=== PATIENT | male | born 1950 | race Caucasian/White ===

== ENCOUNTER → 2017-09-03 14:48 | Outpatient (CLI) | payer MEDICARE, SELFPAY ==
[2017-09-03 14:59] LABS: Basophils % 0.4 % (0.1-2.0); Eosinophils # 0.2 K/mm3 (0.0-0.4); Eosinophils % 2.3 % (0.1-12.0); Hematocrit 41.3 % (42.0-52.0); Hemoglobin 14.5 g/dL (14.1-18.0); Lymphocytes % 26.7 K/mm3 (10-50); Mean Corpuscular HGB Conc 35.2 g/dL (31.8-35.4); Mean Corpuscular Hemoglobin 31.4 pg (27.0-31.2); Mean Corpuscular Volume 89.1 fl (80-94); Mean Platelet Volume 7.6 fl (7.4-10.4); Monocytes # 0.5 K/mm3 (0.1-1.0); Monocytes % 6.5 % (1.7-9.3); Neutrophils # 4.7 K/mm3 (1.8-7.8); Platelet Count 212 K/mm3 (142-424); Red Blood Count 4.63 M/mm3 (4.60-6.20); Red Cell Distribution Width 13.2 % (11.5-17.5); White Blood Count 7.3 K/mm3 (4.8-10.8)
[2017-09-03 15:13] LABS: Anion Gap 11.9 mEq/L (5-15); Blood Urea Nitrogen 14 mg/dL (7-18); Carbon Dioxide 26 mmol/L (21.0-32.0); Chloride 106 mmol/L (98-107); Creatinine,Serum 1.03 mg/dL (0.70-1.30); Estimated Glomerular Filt Rate 72 ml/min (>60); GFR (African American) 87 ML/MIN (>60); Glucose 98 mg/dL (74-106); Potassium 3.9 mmoL/L (3.5-5.1); Sodium 140 mmol/L (136-145); Troponin I < 0.02 ng/ml (0.00-0.06)
== END ==
PROVIDERS: PCP Internal Medicine; Visit Provider Internal Medicine
DX: R55 Syncope and collapse (principal); I25.118 Atherosclerotic heart disease of native coronary artery with other forms of angina pectoris; I25.2 Old myocardial infarction; I10 Essential (primary) hypertension
CPT/HCPCS: 36415; 80048; 84484; 85025; 93005; 93225; 93226

== ENCOUNTER 2017-10-28 | Observation (INO) ==
[2017-10-28 00:19] LABS: Basophils % 0.5 % (0.1-2.0); Eosinophils # 0.2 K/mm3 (0.0-0.4); Eosinophils % 2.5 % (0.1-12.0); Hematocrit 41.3 % (42.0-52.0); Hemoglobin 14.2 g/dL (14.1-18.0); Lymphocytes # 1.7 K/mm3 (0.7-4.5); Mean Corpuscular HGB Conc 34.4 g/dL (31.8-35.4); Mean Corpuscular Hemoglobin 31.5 pg (27.0-31.2); Mean Corpuscular Volume 91.5 fl (80-94); Mean Platelet Volume 7.4 fl (7.4-10.4); Monocytes # 0.4 K/mm3 (0.1-1.0); Monocytes % 5.1 % (1.7-9.3); Neutrophils # 5.2 K/mm3 (1.8-7.8); Neutrophils % 69.9 % (37.0-80.0); Platelet Count 220 K/mm3 (142-424); Red Blood Count 4.51 M/mm3 (4.60-6.20); Red Cell Distribution Width 13.4 % (11.5-17.5); White Blood Count 7.5 K/mm3 (4.8-10.8)
[2017-10-28 00:45] LABS: Alanine Aminotransferase 28 U/L (12-78); Albumin Level 3.8 gm/dL (3.4-5.0); Albumin/Globulin Ratio 1.1 (1.1-1.8); Alkaline Phosphatase 59 U/L (46-116); Anion Gap 12.8 mEq/L (5-15); Aspartate Amino Transferase 17 U/L (15-37); Bilirubin,Total 0.3 mg/dL (0.2-1.0); Blood Urea Nitrogen 17 mg/dL (7-18); Carbon Dioxide 27 mmol/L (21.0-32.0); Chloride 107 mmol/L (98-107); Creatine Kinase 95 U/L (39-308); Globulin 3.4 gm/dl (1.3-3.2); Glucose 104 mg/dL (74-106); Potassium 3.8 mmoL/L (3.5-5.1); Sodium 143 mmol/L (136-145); Total Protein,Serum 7.2 gm/dL (6.4-8.2)
--- NOTE | 2017-10-28 00:54 | Emergency Department Note ---
ED Disposition Clinical Impression: Bradycardia Chest pain Qualifiers: Chest pain type: precordial pain Qualified Code(s): R07.2 - Precordial pain Disposition: Admitted as Observation Condition on Discharge: Good Referrals: Sergio La [Primary Care Provider] - - Critical Care Critical Care Time: No Attestation: On 10/28/17, the high probability of a clinically significant, sudden or life threatening deterioration of the following system(s) required my full and direct attention, intervention and personal management. The time I documented below is in addition to time spent performing reported procedures but includes the following listed in this critical care notation. Medical Decision Making - Medical Records Medical records reviewed: Yes: I reviewed the patient's medical records. - Slim Inquiry Pt receiving controlled substance: No Vital Signs: 10/28/17 00:00 10/28/17 00:27 Temperature 97.8 F Temperature Source Oral Pulse Rate [Left Radial] 53 L 48 L Respiratory Rate 28 H 20 Blood Pressure [Right Arm] 145/73 132/73 Blood Pressure Mean [Right Arm] 97 92 Blood Pressure Source [Right Arm] Automatic Cuff Automatic Cuff Blood Pressure Position [Right Arm] Sitting Sitting 02 Sat by Pulse Oximetry 93 L 97 Oxygen Delivery Method Room Air Nasal Cannula Oxygen Flow Rate (LPM) 1.5 - Lab Data Lab results reviewed: Yes: I reviewed the patient's lab results. Lab Results 10/28/17 00:10: WBC 7.5, RBC 4.51 L, Hgb 14.2, Hct 41.3 L, MCV 91.5, MCH 31.5 H , MCHC 34.4, RDW 13.4, Plt Count 220, MPV 7.4, Neut % (Auto) 69.9, Lymph % (Auto ) 22.0, [place] % (Auto) 5.1, Eos % (Auto) 2.5, Baso % (Auto) 0.5, Neut # (Auto) 5.2, Lymph # (Auto) 1.7, [place] # (Auto) 0.4, Eos # (Auto) 0.2, Baso # (Auto) 0.0 10/28/17 00:10: Sodium 143, Potassium 3.8, Chloride 107, Carbon Dioxide 27, Anion Gap 12.8, BUN 17, Creatinine 1.18, Estimated Creat Clear 70, Estimated GFR 62, Est GFR ( Amer) 75, Glucose 104, Calcium 9.0, Total Bilirubin 0.3 , AST 17, ALT 28, Alkaline Phosphatase 59, Total Creatine Kinase 95, CK-MB (CK-2 ) 1.1, CK-MB (CK-2) Rel Index 1.2, Troponin I < 0.02, Total Protein 7.2, Albumin 3.8, Globulin 3.4 H, Albumin/Globulin Ratio 1.1 Result diagrams: 10/28/17 00:10 10/28/17 00:10 Orders (Tests/Meds): ED MEDICATIONS Discontinued Medications Generic Name Dose Route Start Last Admin Trade Name Freq PRN Reason Stop Dose Admin Nitroglycerin 1 gm 10/28/17 00:22 10/28/17 00:24 Nitroglycerin 1 Inch Oint Udp TD 10/28/17 00:23 1 gm ONCE ONE Administration ORDERS Category Date Time Status Chest XR -- portable [XR chest portable] Stat Exams 10/28/17 00:02 Taken 12-lead EKG Request [ECG Request by /Edyta] Stat Y 10/28/17 00:02 Ordered - Radiology Data #1 Image(s): Chest Image Reviewed: Yes I reviewed the patient's radiology image Preliminary Findings: Normal/NAD - ECG Data Tracing #1 I reviewed this ECG and interpreted as documented below: Arrhythmias present: sinus tom Ischemic changes: non-specific ST-T wave changes - Physician Consults Physician Consulted: boris Reason -: Admission Chest Pain HPI - General Chief Complaint: Chest Pain Stated Complaint: chest pain Time Seen by Provider: 10/28/17 00:10 Mode of Arrival: Wheelchair Source of Information: Patient, Relative, Medical Record Limitations: No Limitations Description of Symptoms (Recalled from ER Triage Doc. by RN): Pt. reports he began having sharp central chest pain, nausea, and difficulty breating on and off since 7pm. He reports it got worse around 1045pm and he took four 81mg baby aspirin, and and three nitro tablets under his tongue 5 minutes apart. He states the medication did not relieve his pain. - History of Present Illness HPI narrative: sharp lt sided epigastric pain which started at 0700 - assoc with jake JULIAN complaint: chest pain indicative of cardiac Onset (ago): hour(s) Duration: constant Activity at onset: during rest Pain location: epigastric Severity: moderate Quality: sharp Pain radiation: back Relieving factors: nothing Risk Factors for CAD: Hypertension, Hypercholesterolemia, Family Hx of CAD Treatments prior to or on arrival for Cardiac Chest Pain: aspirin, nitroglycerin - GIANFRANCO Score Non-Stemi Age of patient: 65 yrs or more Number of risk factors for CAD: Presence of 3 or more Prior coronary artery stenosis(seen in coronary angiography): Less than 50% ST-Segment deviation on ECG (more than 1 min): Absent Prior aspirin intake: ASA intake in the last 7 days Severe anginal chest pain: No or one episode in last 24 hours Elevated cardiac markers(CK-MB or troponin): Absent Non-Stemi Risk Score: 3 - Related Data Home Medications Medication Instructions Recorded Confirmed Aspirin [Aspirin 81mg EC Tab] 81 mg PO DAILY 10/28/17 10/28/17 Clopidogrel Bisulfate [Plavix 75mg 75 mg PO DAILY 10/28/17 10/28/17 Tab] Levothyroxine Sodium [Synthroid 88 mcg PO DAILY 10/28/17 10/28/17 88mcg (0.088mg) tablet] Lisinopril [Lisinopril 10mg Tab] 10 mg PO DAILY 10/28/17 10/28/17 Losartan Potassium 100 mg PO DAILY 10/28/17 10/28/17 Metoprolol Tartrate [Lopressor 12.5 mg PO DAILY 10/28/17 10/28/17 25mg tablet] Nitroglycerin [Nitrostat 0.4mg SL 0.4 mg SL NEEDED PRN 10/28/17 10/28/17 Tablet] Pantoprazole Sodium [Pantoprazole 40 mg PO DAILY 10/28/17 10/28/17 20mg Tab] Rosuvastatin Calcium [Crestor] 20 mg PO DAILY 10/28/17 10/28/17 Allergies Allergy/AdvReac Type Severity Reaction Status Date / Time No Known Allergies Allergy Unknown Uncoded 06/24/17 15:01 [facility] History I have reviewed the patient's past medical history: Yes Medical History: Denies:: Diabetes Mellitus Type 1, Diabetes Mellitus Type 2 Laterality Cases: Right: Arthroscopy Shoulder - Social History Alcohol Intake: never - Psychiatric History Expresses thoughts of harming self/others: None Suicide Plan Description: No Plan ROS Obtained: Yes All systems reviewed & no additional complaints - Constitutional Constitutional: Denies fever(s) - Eyes Eyes: Denies change in vision - ENT Ears, Nose, Mouth, and Throat: Denies sore throat - Cardiovascular Cardiovascular: Reports chest pain at rest - Respiratory Respiratory: No chest congestion, No cough - Gastrointestinal Gastrointestingal: Denies: abdominal pain - Genitourinary Female Genitourinary: Denies hematuria - Musculoskeletal Musculoskeletal: Denies joint pain - Integumentary/Breasts Skin/Breast: Denies rash - Neurologic Neurologic: Denies seizure-like activity Physical Exam - General General appearance: in no apparent distress - Head Head exam: normocephalic - Eye Eye exam: Present: PERRL, EOMI - ENT ENT exam: Present: mucous membranes moist - Neck Neck exam: Present: trachea midline - Respiratory Respiratory exam: Present: normal lung sounds bilaterally, respiratory distress - Cardiovascular Cardiovascular exam: Present: bradycardia, systolic murmur - Abdominal Exam Abdominal exam: Present: soft - Extremities Exam Extremities exam: Absent: calf tenderness - Neurological Exam Neurological exam: Present: alert, oriented X3, CN II-XII intact - Psychiatric Psychiatric exam: Present: normal affect - Skin Skin exam: Absent: rash
[2017-10-28 07:25] LABS: Basophils % 0.3 % (0.1-2.0); Eosinophils # 0.1 K/mm3 (0.0-0.4); Eosinophils % 1.3 % (0.1-12.0); Hematocrit 37.2 % (42.0-52.0); Hemoglobin 12.9 g/dL (14.1-18.0); Lymphocytes # 1.7 K/mm3 (0.7-4.5); Lymphocytes % 19.9 K/mm3 (10-50); Mean Corpuscular HGB Conc 34.7 g/dL (31.8-35.4); Mean Corpuscular Hemoglobin 31.5 pg (27.0-31.2); Mean Corpuscular Volume 90.7 fl (80-94); Mean Platelet Volume 7.6 fl (7.4-10.4); Monocytes # 0.4 K/mm3 (0.1-1.0); Neutrophils # 6.2 K/mm3 (1.8-7.8); Neutrophils % 73.5 % (37.0-80.0); Platelet Count 188 K/mm3 (142-424); Red Cell Distribution Width 13.5 % (11.5-17.5); White Blood Count 8.5 K/mm3 (4.8-10.8)
[2017-10-28 07:31] LABS: Anion Gap 14.7 mEq/L (5-15); Potassium 3.7 mmoL/L (3.5-5.1)
--- NOTE | 2017-10-28 08:27 | Pharmacy Consult Notes ---
[facility] Pharmacy VTE Monitoring - Patient Demographics Admission date: 10/27/17 Report Date: 10/28/17 Time: 08:26 Allergies/Adverse Reactions: Patient Allergies No Known Allergies Allergy (Unknown, Uncoded 06/24/17 15:01) Height: 1.75 m Weight: 81.647 kg Patient Problems: Current Active Problems Chest pain (Acute) Bradycardia (Acute) - VTE Risk Labs: VTE Related Lab Results Hgb 12.9 g/dL (14.1-18.0) L 10/28/17 06:15 Hct 37.2 % (42.0-52.0) L 10/28/17 06:15 Plt Count 188 K/mm3 (142-424) 10/28/17 06:15 BUN 16 mg/dL (7-18) 10/28/17 06:15 Creatinine 0.90 mg/dL (0.70-1.30) D 10/28/17 06:15 Estimated Creat Clear 83 mL/min (0-300) 10/28/17 06:15 Was VTE Risk Assessment Performed: Yes VTE Score: 4 VTE Risk Level: Low Risk Clinical Trial Participant: No - Prophylaxis VTE Prophylaxis Ordered?: Yes Types of VTE Prophylaxis: TEDS Knee High
--- NOTE | 2017-10-28 09:36 | History & Physical Report ---
*Admission Date: 10/27/17 *Chief complaint: chest pain *History of present illness: 67 year old male with a history of CAD, HTN and hyperlipidemia presented to the ED for evaluation of chest pain. Patient reports he was sitting is his recliner last evening when he had acute onset of midsternal chest pain that radiated to his back. He took 2 NTG SL with no improvement of symptoms. Patient states the pain was similar to his angina in the past. Pain was relieved with Morphine administration on arrival to the ED. He is followed by Dr. Mckay with last coronary stent placed 3-4 years ago. In the ED, he was found to be bradycardiac. EKG was negative for acute pathology. He was admitted for observation and cardiology consultation. Today, patient reports one episode of chest pain through the night. Serial cardiac enzymes were normal. He was noted to be bradycardiac on telemetry with rates in 30-40's at times. Daughter reports cardiology has discussed PPM in the past. [facility] History I have reviewed the patient's past medical history: Yes Medical History: Reports:: Hypertension, Myocardial Infarction Denies:: Cancer, Diabetes Mellitus Type 1, Diabetes Mellitus Type 2, MRSA Laterality Cases: Right: Arthroscopy Shoulder Other Surgeries: Yes: Other (right rotator cuff) Amputation: No Fractures: No - *Social History Educational Level: Completed Grade School Alcohol Intake: never Occupational Status: employed, retired Housing: house Household Members: spouse - Psychiatric History Expresses thoughts of harming self/others: None Suicide Plan Description: No Plan *Family Hx:: Cancer, Coronary Artery Disease, Diabetes, Heart Attack, Hyperlipidemia, Hypertension, Stroke, Thyroid Disorder Review of Systems - Review of Systems Review of systems:: pertinent systems reviewed and negative unless documented below - *Cardiovascular Reports chest pain - *Neurologic Denies seizure-like activity Meds Home Medications Medication Instructions Recorded Confirmed Type Aspirin [Aspirin 81mg EC Tab] 81 mg PO DAILY 10/28/17 10/28/17 History Clopidogrel Bisulfate [Plavix 75mg 75 mg PO DAILY 10/28/17 10/28/17 History Tab] Levothyroxine Sodium [Synthroid 88 mcg PO DAILY 10/28/17 10/28/17 History 88mcg (0.088mg) tablet] Lisinopril [Lisinopril 10mg Tab] 10 mg PO DAILY 10/28/17 10/28/17 History Losartan Potassium 100 mg PO DAILY 10/28/17 10/28/17 History Metoprolol Tartrate [Lopressor 12.5 mg PO DAILY 10/28/17 10/28/17 History 25mg tablet] Nitroglycerin [Nitrostat 0.4mg SL 0.4 mg SL NEEDED PRN 10/28/17 10/28/17 History Tablet] Pantoprazole Sodium [Pantoprazole 40 mg PO DAILY 10/28/17 10/28/17 History 20mg Tab] Rosuvastatin Calcium [Crestor] 20 mg PO DAILY 10/28/17 10/28/17 History Allergies Allergy/AdvReac Type Severity Reaction Status Date / Time No Known Allergies Allergy Unknown Uncoded 06/24/17 15:01 Exam Vital signs and Labs for Last 24 Hours: Temp Pulse Resp BP Pulse Ox 98.1 F 54 L 18 122/69 95 10/28/17 07:22 10/28/17 07:22 10/28/17 07:22 10/28/17 07:22 10/28/17 07:22 Laboratory Results - last 24 hr 10/28/17 00:10: WBC 7.5, RBC 4.51 L, Hgb 14.2, Hct 41.3 L, MCV 91.5, MCH 31.5 H , MCHC 34.4, RDW 13.4, Plt Count 220, MPV 7.4, Neut % (Auto) 69.9, Lymph % (Auto ) 22.0, [place] % (Auto) 5.1, Eos % (Auto) 2.5, Baso % (Auto) 0.5, Neut # (Auto) 5.2, Lymph # (Auto) 1.7, [place] # (Auto) 0.4, Eos # (Auto) 0.2, Baso # (Auto) 0.0 10/28/17 00:10: Sodium 143, Potassium 3.8, Chloride 107, Carbon Dioxide 27, Anion Gap 12.8, BUN 17, Creatinine 1.18, Estimated Creat Clear 70, Estimated GFR 62, Est GFR ( Amer) 75, Glucose 104, Calcium 9.0, Total Bilirubin 0.3 , AST 17, ALT 28, Alkaline Phosphatase 59, Total Creatine Kinase 95, CK-MB (CK-2 ) 1.1, CK-MB (CK-2) Rel Index 1.2, Troponin I < 0.02, Total Protein 7.2, Albumin 3.8, Globulin 3.4 H, Albumin/Globulin Ratio 1.1 10/28/17 03:15: Troponin I < 0.02 10/28/17 06:15: WBC 8.5, RBC 4.10 L, Hgb 12.9 L, Hct 37.2 L, MCV 90.7, MCH 31.5 H, MCHC 34.7, RDW 13.5, Plt Count 188, MPV 7.6, Neut % (Auto) 73.5, Lymph % ( Auto) 19.9, [place] % (Auto) 5.0, Eos % (Auto) 1.3, Baso % (Auto) 0.3, Neut # (Auto ) 6.2, Lymph # (Auto) 1.7, [place] # (Auto) 0.4, Eos # (Auto) 0.1, Baso # (Auto) 0.0 10/28/17 06:15: Sodium 144, Potassium 3.7, Chloride 108 H, Carbon Dioxide 25, Anion Gap 14.7, BUN 16, Creatinine 0.90 D, Estimated Creat Clear 83, Estimated GFR 84, Est GFR ( Amer) 102 D, Glucose 99, Magnesium 1.7 10/28/17 06:15: Troponin I < 0.02 I & O for Last 24 hours: Intake & Output 10/25/17 10/26/17 10/27/17 10/28/17 11:59 11:59 11:59 11:59 Intake Total 592 / 592 Balance 592 / 592 Weight 180 lb Narrative: Alert and oriented x3. Rate and rhythm regular. Sinus bradycardia on bedside tele. No JVD. No carotid bruit. No cervical LAD. No LE edema. Pulses 2+ bilaterally. Lung sounds clear and equal. Abdomen soft and nontender. No neuro deficits. H&P: Result - Labs Labs: Short CBC 10/28/17 10/28/17 Range/Units 00:10 06:15 WBC 7.5 8.5 (4.8-10.8) K/mm3 Hgb 14.2 12.9 L (14.1-18.0) g/dL Hct 41.3 L 37.2 L (42.0-52.0) % Plt Count 220 188 (142-424) K/mm3 BMP 10/28/17 10/28/17 00:10 06:15 Sodium 143 144 Potassium 3.8 3.7 Chloride 107 108 H Carbon Dioxide 27 25 BUN 17 16 Creatinine 1.18 0.90 D Glucose 104 99 Calcium 9.0 Cardiac Enzymes 10/28/17 10/28/17 10/28/17 Range/Units 00:10 03:15 06:15 Total Creatine Kinase 95 (39-308) U/L CK-MB (CK-2) 1.1 (0.0-3.6) ng/ml Troponin I < 0.02 < 0.02 < 0.02 (0.00-0.06) ng/ml Liver Function 10/28/17 Range/Units 00:10 Total Bilirubin 0.3 (0.2-1.0) mg/dL AST 17 (15-37) U/L ALT 28 (12-78) U/L Alkaline Phosphatase 59 (46-116) U/L Albumin 3.8 (3.4-5.0) gm/dL Assessment and Plan (1) Bradycardia Current visit: Yes Status: Acute Category: Medical Code(s): R00.1 - Bradycardia, unspecified (2) Chest pain Current visit: Yes Status: Acute Qualifiers: Chest pain type: precordial pain Qualified Code(s): R07.2 - Precordial pain Category: Medical Code(s): R07.9 - Chest pain, unspecified - Assessment and plan all Dx Assessment and Plan for all problems:: Consult cardiology. Obtain Echo. Continue to monitor telemetry. Hold beta milton for bradycardia.
--- NOTE | 2017-10-28 17:24 | Consult Report ---
History of Present Illness Consult date: 10/28/17 Requesting physician: Bob Hines Consult reason: chest pain, known to you Chief complaint: Chest pain Additional Medical History:: PROBLEM LIST: 1. Sharp, unrelenting CP for several hours relieved w/morphine in ER A. One associated episode of N/V B. No ischemic EKG changes C. Normal serial cardiac enzymes 2. ASCD; s/p YAMINI to proximal LAD 08/08/15 for 90% focal stenosis 3. HTN 4. HLD 5. GERD 6. Hypothyroidism 7. PAF; short 8 beat episode of AF on Holter monitor earlier this year 8. Chronic anticoag with Eliquis (however, pt did not take any doses yesterday due to nose bleeds and has not been given any since arrival at hospital) History of present illness: 67 yo male with known CAD, s/p YAMINI to proximal LAD in Aug 2015, admitted through the ER for CP. Mr Flores developed non-exertional, sharp pain in the mid-left chest last evening that was unrelenting and persisted for several hours (he says ~ 3 hours, his says longer). He had one episode of nausea with vomiting with the CP. He also had assoc numbness and tingling in both arms at times. He reports that the CP was worse when he took a deep breath but otherwise noted no exacerbating factors/activities. At home, he was unable to get any relief from the CP. He took 3 SL NTG tabs with no improvement. He finally got some relief when he was given Morphine 2 mg IV in the ER about 1 am this morning. Since then he has remained relatively pain free. EKG in ER was unremarkable except for marked sinus bradycardia, which he's had for the past years on a very low dose of Metoprolol tartrate (12.5 mg once daily). 3 sets of cardiac enzymes were all normal. He underwent a Lexiscan stress Myoview study this afternoon. It was read as "high risk" abnormal with a large degree of reversible ischemia in the inferior- apex accompanied by mild inferior wall hypokinesis. EF 52%. Pt was placed on Eliquis earlier this year for a very short (8 beat) episode of AF on Holter monitor. However, he reports that he did not take any yesterday due to nose bleed. He also has not been given a dose since arrival. Review of Systems - Constitutional Reports fatigue, Reports weakness - *Cardiovascular Reports chest pain at rest, Reports leg pain with activity, Reports shortness of breath with activity - *Respiratory Reports shortness of breath with activity - *Gastrointestinal Reports abdominal pain, Reports nausea, Reports vomiting - *Neurologic Denies seizure-like activity [facility] History Medical History: Reports:: Atherosclerotic Heart Disease, Atrial Fibrillation, Hyperlipidemia, Hypertension Denies:: Cancer, Diabetes Mellitus Type 1, Diabetes Mellitus Type 2, MRSA Other Medical History: Reports: Hypothyroidism Laterality Cases: Right: Arthroscopy Shoulder (Rotator cuff repair) Other Surgeries: Yes: Cardiac Catheterization, Other (right rotator cuff) Amputation: No Fractures: No - *Social History Educational Level: Completed Grade School Smoking Status: Never smoker Alcohol Intake: never Occupational Status: employed, retired Housing: house Household Members: spouse - Psychiatric History Expresses thoughts of harming self/others: None Suicide Plan Description: No Plan *Family Hx:: Cancer, Coronary Artery Disease, Diabetes, Heart Attack, Hyperlipidemia, Hypertension, Stroke, Thyroid Disorder Meds Home Medications Medication Instructions Recorded Confirmed Type Apixaban [Eliquis] 5 mg PO BID 10/28/17 10/28/17 History Aspirin [Aspirin 81mg EC Tab] 81 mg PO DAILY 10/28/17 10/28/17 History Clopidogrel Bisulfate [Plavix 75mg 75 mg PO DAILY 10/28/17 10/28/17 History Tab] Levothyroxine Sodium [Synthroid 88 mcg PO DAILY 10/28/17 10/28/17 History 88mcg (0.088mg) tablet] Lisinopril [Lisinopril 10mg Tab] 10 mg PO DAILY 10/28/17 10/28/17 History Losartan Potassium 100 mg PO DAILY 10/28/17 10/28/17 History Metoprolol Tartrate [Lopressor 12.5 mg PO DAILY 10/28/17 10/28/17 History 25mg tablet] Nitroglycerin [Nitrostat 0.4mg SL 0.4 mg SL NEEDED PRN 10/28/17 10/28/17 History Tablet] Pantoprazole Sodium [Pantoprazole 40 mg PO DAILY 10/28/17 10/28/17 History 20mg Tab] Rosuvastatin Calcium [Crestor] 20 mg PO DAILY 10/28/17 10/28/17 History Allergies Allergy/AdvReac Type Severity Reaction Status Date / Time No Known Allergies Allergy Unverified 10/28/17 10:51 Exam Vital signs and Labs for Last 24 Hours: Temp Pulse Resp BP Pulse Ox 97.8 F 58 L 20 155/85 97 10/28/17 15:26 10/28/17 15:26 10/28/17 15:26 10/28/17 15:26 10/28/17 15:26 Laboratory Results - last 24 hr 10/28/17 00:10: WBC 7.5, RBC 4.51 L, Hgb 14.2, Hct 41.3 L, MCV 91.5, MCH 31.5 H , MCHC 34.4, RDW 13.4, Plt Count 220, MPV 7.4, Neut % (Auto) 69.9, Lymph % (Auto ) 22.0, [place] % (Auto) 5.1, Eos % (Auto) 2.5, Baso % (Auto) 0.5, Neut # (Auto) 5.2, Lymph # (Auto) 1.7, [place] # (Auto) 0.4, Eos # (Auto) 0.2, Baso # (Auto) 0.0 10/28/17 00:10: Sodium 143, Potassium 3.8, Chloride 107, Carbon Dioxide 27, Anion Gap 12.8, BUN 17, Creatinine 1.18, Estimated Creat Clear 70, Estimated GFR 62, Est GFR ( Amer) 75, Glucose 104, Calcium 9.0, Total Bilirubin 0.3 , AST 17, ALT 28, Alkaline Phosphatase 59, Total Creatine Kinase 95, CK-MB (CK-2 ) 1.1, CK-MB (CK-2) Rel Index 1.2, Troponin I < 0.02, Total Protein 7.2, Albumin 3.8, Globulin 3.4 H, Albumin/Globulin Ratio 1.1 10/28/17 03:15: Troponin I < 0.02 10/28/17 06:15: WBC 8.5, RBC 4.10 L, Hgb 12.9 L, Hct 37.2 L, MCV 90.7, MCH 31.5 H, MCHC 34.7, RDW 13.5, Plt Count 188, MPV 7.6, Neut % (Auto) 73.5, Lymph % ( Auto) 19.9, [place] % (Auto) 5.0, Eos % (Auto) 1.3, Baso % (Auto) 0.3, Neut # (Auto ) 6.2, Lymph # (Auto) 1.7, [place] # (Auto) 0.4, Eos # (Auto) 0.1, Baso # (Auto) 0.0 10/28/17 06:15: Sodium 144, Potassium 3.7, Chloride 108 H, Carbon Dioxide 25, Anion Gap 14.7, BUN 16, Creatinine 0.90 D, Estimated Creat Clear 83, Estimated GFR 84, Est GFR ( Amer) 102 D, Glucose 99, Magnesium 1.7 10/28/17 06:15: Troponin I < 0.02 I & O for Last 24 hours: Intake & Output 10/25/17 10/26/17 10/27/17 10/28/17 23:59 23:59 23:59 23:59 Intake Total 592 / 592 Balance 592 / 592 Weight 81.647 kg Radiology Reports for the Last 24 Hours: Pharmacological stress MPI: high risk abn with large area of inferoapical ischemia and mild inferior hypokinesis, EF 52%. CXR: Mild right basilar atelectasis otherwise negative. Narrative: A&O x 3 in no distress. Neck: no bruits. Chest: CTA with good BS. Mild tenderness to palpation of the L chest. Heart: marked sinus tom, no murmurs. Abd: + BS, soft, mild tenderness in epigastric region. Ext: 2+ pedal pulse, no edema. Results 10/28/17 06:15 10/28/17 06:15 Cardiac Enzymes 10/28/17 10/28/17 10/28/17 Range/Units 00:10 03:15 06:15 AST 17 (15-37) U/L CK-MB (CK-2) 1.1 (0.0-3.6) ng/ml Troponin I < 0.02 < 0.02 < 0.02 (0.00-0.06) ng/ml CBC 10/28/17 10/28/17 Range/Units 00:10 06:15 WBC 7.5 8.5 (4.8-10.8) K/mm3 RBC 4.51 L 4.10 L (4.60-6.20) M/mm3 Hgb 14.2 12.9 L (14.1-18.0) g/dL Hct 41.3 L 37.2 L (42.0-52.0) % Plt Count 220 188 (142-424) K/mm3 Neut # (Auto) 5.2 6.2 (1.8-7.8) K/mm3 Lymph # (Auto) 1.7 1.7 (0.7-4.5) K/mm3 [place] # (Auto) 0.4 0.4 (0.1-1.0) K/mm3 Eos # (Auto) 0.2 0.1 (0.0-0.4) K/mm3 Baso # (Auto) 0.0 0.0 (0-0.2) K/mm3 Comprehensive Metabolic Panel 10/28/17 10/28/17 Range/Units 00:10 06:15 Sodium 143 144 (136-145) mmol/L Potassium 3.8 3.7 (3.5-5.1) mmoL/L Chloride 107 108 H (98-107) mmol/L Carbon Dioxide 27 25 (21.0-32.0) mmol/L BUN 17 16 (7-18) mg/dL Creatinine 1.18 0.90 D (0.70-1.30) mg/dL Glucose 104 99 (74-106) mg/dL Calcium 9.0 (8.5-10.1) mg/dL AST 17 (15-37) U/L ALT 28 (12-78) U/L Alkaline Phosphatase 59 (46-116) U/L Total Protein 7.2 (6.4-8.2) gm/dL Albumin 3.8 (3.4-5.0) gm/dL Intake and Output 10/28/17 10/28/17 10/28/17 07:59 15:59 23:59 Intake Total 592 / 592 0 / 0 Balance 592 / 592 0 / 0 Intake: Intake, Oral Amount 240 / 240 0 / 0 Intake, Total IV Amount 352 / 352 0.9 % Sodium Chloride 1,000 ml 352 / 352 @ 75 mls/hr IV .[id number] [facility] Rx# :[id number] Other: Weight 81.647 kg 81.647 kg Patient Weight 10/28/17 23:59 Weight 81.647 kg - Imaging and Cardiology Stress echo: report reviewed EKG results: image reviewed - EKG Interpretation EKG: sinus rhythm, no acute changes EKG shows: bradycardia Assessment and Plan (1) Bradycardia Current visit: Yes Status: Acute Category: Medical Code(s): R00.1 - Bradycardia, unspecified (2) Chest pain Current visit: Yes Status: Acute Qualifiers: Chest pain type: precordial pain Qualified Code(s): R07.2 - Precordial pain Category: Medical Code(s): R07.9 - Chest pain, unspecified - Assessment and plan all Dx Assessment and Plan for all problems:: Assessment: 1. CP, ruled out for [place]. 2. High risk abn stress MPI 3. Known CAD, s/p prior YAMINI to prox LAD 2015. Plan: 1. Continue DAPT with Plavix and low-dose ASA. 2. Lovenox, 1mg/kg Q12H starting now. 3. Continue high-dose statin (Rosuvastatin 20 mg daily). 4. Replace Lisinopril with Losartan (PCP made this change earlier this year due to a cough) 5. Continue to hold Eliquis for [facility]. 6. Hold Metoprolol due to marked sinus tom. 7. Will plan on transfer to [facility] in the AM for [facility] w/Dr Woody Canas If pt becomes symptomatic overnight, Dr Mckay is production operations inspector and can be contacted for immediate transfer.
--- NOTE | 2017-10-28 23:12 | Cardiology Report ---
PROCEDURE: 2-D M-mode and color Doppler study INDICATIONS FOR THE TEST: Chest pain X COPD Heart Murmur Tobacco Smoking Palpitations Fatigue Syncope Edema HypertensionXDiabetes MellitusX Rheumatic Fever SOBXDOE Obesity HyperlipidemiaX Family History HD Additional History CAD,H/O STENTS PATIENT INFORMATION HEIGHT: 68 WEIGHT:180 GENDER: Male B/P:145/73 2-D/M-MODE INTERPRETATION: 2-D MEASUREMENTS OBSERVED VALUES IN CMS Right Ventricular Dimension (RVDd) 2.5 Interventricular Septum (Thickness)(IVsd) .9 Left Ventricular Internal Dimensions(LVIDd) 5.8 Left Ventricular Posterior Wall (Thickness)(LVPWd) .9 Aortic Root 3.4 Aortic Cusp Separation 2.0 Left Atrial Dimensions (LAD) 3.3 2D 1. Left atrium is mildly enlarged, left ventricle is normal size, visually estimated ejection fraction 55% with no obvious regional wall motion abnormality. 2. The right atrium and right ventricle are relatively normal size and function. 3. The aortic valve is minimally thickened fibrosed. 4. The mitral and tricuspid valve are grossly normal. 5. The pulmonic valve is poorly visualized. 6. No significant pericardial effusion noted. DOPPLER INTERROGATION: Doppler interrogation of the aortic, mitral and tricuspid valvular presence of mild mitral and tricuspid regurgitation, tricuspid and jet velocity is insufficient for calculation of the right ventricular systolic pressure, grade 1 diastolic dysfunction seen without tissue Doppler evidence of raised left atrial pressure. CONCLUSION: 1. Mildly enlarged left atrium, normal left ventricular size, visually estimated ejection fraction 55% with no obvious regional wall motion abnormality, grade 1 diastolic dysfunction seen without tissue Doppler evidence of raised left atrial pressure. 2. Mild mitral and tricuspid regurgitation 3. No significant pericardial effusion noted.
--- NOTE | 2017-10-29 08:40 | Discharge Summary ---
General - General Admission date:: 10/28/17 Discharge date: 10/29/17 HPI HPI: 67 year old male with a history of CAD, HTN and hyperlipidemia presented to the ED for evaluation of chest pain. Patient reports he was sitting is his recliner last evening when he had acute onset of midsternal chest pain that radiated to his back. He took 2 NTG SL with no improvement of symptoms. Patient states the pain was similar to his angina in the past. Pain was relieved with Morphine administration on arrival to the ED. He is followed by Dr. Mckay with last coronary stent placed 3-4 years ago. In the ED, he was found to be bradycardiac. EKG was negative for acute pathology. He was admitted for observation and cardiology consultation. Today, patient reports one episode of chest pain through the night. Serial cardiac enzymes were normal. He was noted to be bradycardiac on telemetry with rates in 30-40's at times. Daughter reports cardiology has discussed PPM in the past. Hospital Course Hospital Course: Patient was admitted, ruled out for myocardial infarction by enzyme and EKG criteria. Because of his strong history and clinical presentation Myoview cardiac testing was done which revealed a high risk test with abnormal perfusion deficits. Cardiology service was consulted and they wished patient to be referred for left heart cath. [facility] cardiology felt the patient would be amenable to heart cath as an outpatient, patient felt more comfortable with no chest pain and will be discharged today. Please see cardiology notes for details. Patient was instructed up with cardiology tomorrow for outpatient catheter report to the ER immediately if he had chest pain that was not relieved by nitroglycerin. Objective Vital signs: Temp Pulse Resp BP Pulse Ox 98.0 F 62 18 117/69 95 10/29/17 08:02 10/29/17 08:02 10/29/17 08:02 10/29/17 08:02 10/29/17 08:02 Narrative: Heart rate regular, alert, oriented 3. No edema, lungs clear. DS: Diagnosis - Discharge Diagnosis (1) Coronary atherosclerosis Status: Acute Discharge Plan - Patient Discharge Instructions ACTIVITY: Continue current activity DIET: continue same diet - Follow up Plan Follow up with: Yury Mckay [Referring] - 1 day Disposition: Home, Self-Longterm Medications: Home Medications Medication Instructions Recorded Confirmed Type Apixaban [Eliquis] 5 mg PO BID 10/28/17 10/28/17 History Aspirin [Aspirin 81mg EC Tab] 81 mg PO DAILY 10/28/17 10/28/17 History Clopidogrel Bisulfate [Plavix 75mg 75 mg PO DAILY 10/28/17 10/28/17 History Tab] Levothyroxine Sodium [Synthroid 88 mcg PO DAILY 10/28/17 10/28/17 History 88mcg (0.088mg) tablet] Lisinopril [Lisinopril 10mg Tab] 10 mg PO DAILY 10/28/17 10/28/17 History Losartan Potassium 100 mg PO DAILY 10/28/17 10/28/17 History Metoprolol Tartrate [Lopressor 12.5 mg PO DAILY 10/28/17 10/28/17 History 25mg tablet] Nitroglycerin [Nitrostat 0.4mg SL 0.4 mg SL NEEDED PRN 10/28/17 10/28/17 History Tablet] Pantoprazole Sodium [Pantoprazole 40 mg PO DAILY 10/28/17 10/28/17 History 20mg Tab] Rosuvastatin Calcium [Crestor] 20 mg PO DAILY 10/28/17 10/28/17 History Prescriptions/Medication Reconciliation: New Nitroglycerin 0.4 mg SL Q5MINP PRN #25 tab.subl PRN Reason: chest pain Continue Losartan Potassium 100 mg PO DAILY Rosuvastatin Calcium [Crestor] 20 mg PO DAILY Pantoprazole Sodium [Pantoprazole 20mg Tab] 40 mg PO DAILY Metoprolol Tartrate [Lopressor 25mg tablet] 12.5 mg PO DAILY Lisinopril [Lisinopril 10mg Tab] 10 mg PO DAILY Levothyroxine Sodium [Synthroid 88mcg (0.088mg) tablet] 88 mcg PO DAILY Clopidogrel Bisulfate [Plavix 75mg Tab] 75 mg PO DAILY Aspirin [Aspirin 81mg EC Tab] 81 mg PO DAILY Apixaban [Eliquis] 5 mg PO BID Nitroglycerin [Nitrostat 0.4mg SL Tablet] 0.4 mg SL NEEDED PRN PRN Reason: Chest Pain
--- NOTE | 2017-10-29 10:03 | Progress Note ---
Subjective Date: 10/29/17 Time: 09:56 Principal diagnosis: Angina, abnormal stress MPI study, known CAD Interval history: Mr Flores had an uneventful night, resting well, with no recurrence of his chest pain. His HR dropped into the mid-upper 30s briefly at times overnight but is in the 50-60s when awake. We have stopped his Metoprolol tartrate indefinitely. His blood pressures have all been within normal. No new labs or tests to report this morning. I discussed Mr Flores with Dr Mckay. Given that he has been free of any CP for >/= 18 hours, he feels that his CV risk is acceptable to be d/c home on appropriate medications then present to [facility] tomorrow morning for LHC. If he has recurrence of unrelenting CP he should call EMS or go straight to the ER. Exam Vital signs and Labs for Last 24 Hours: Temp Pulse Resp BP Pulse Ox 98.0 F 62 18 117/69 95 10/29/17 08:02 10/29/17 08:02 10/29/17 08:02 10/29/17 08:02 10/29/17 08:02 I & O for Last 24 hours: Intake & Output 10/26/17 10/27/17 10/28/17 10/29/17 23:59 23:59 23:59 23:59 Intake Total 1072 / 1072 746 / 746 Output Total 550 / 550 Balance 522 / 522 746 / 746 Weight 81.647 kg Narrative: He is awake and alert in no distress this morning. Heart rate is mildly bradycardic with regular rhythm. Lungs CTA. No peripheral edema. Progress Note: A&P (1) Coronary atherosclerosis Status: Acute Current Visit: Yes Assessment and Plan for All Diagnoses:: ASSESSMENT: 1. CP, resolved A. Ruled out for ID with serial cardiac enzymes B. No acute ischemic EKG changes 2. "High-risk" abnormal stress MPI study A. Large degree of inferior apical ischemia B. Mild inferior hypokinesis, EF 52% 3. Known CAD; s/p stenting of prox LAD 08/2015 4. Sinus bradycardia PLAN: 1. LHC scheduled at [facility] tomorrow morning. Check in at 7:30am. A. NPO after midnight B. Take regular AM meds (except Eliquis and Metoprolol) in the morning with small amount of water 2. OK to d/c home today. Pt understands to call EMS or go to ER if unrelenting CP returns. 3. Stop Metoprolol tartrate indefinitely due to marked sinus bradycardia 4. Hold Eliquis until sometime after [facility] (Dr Mckay to provide specific guidance tomorrow). 5. Continue DAPT (Clopidogrel and low-dose ASA), high dose statin (Rosuvastatin 20 qd) and ARB (Losartan 50 qd). Will send a new Rx for SL NTG to his pharmacy. 6. Call our office for any questions or concerns.
== END 2017-10-29 11:10 | disposition home or self-care (01) ==
LOC: ER → 2ND
PROVIDERS: ADMIT Internal Medicine Adolescent Medicine; ATTEND Internal Medicine Adolescent Medicine

== ENCOUNTER → 2017-11-19 07:35 | Outpatient (CLI) | payer MEDICARE, SELFPAY ==
--- NOTE | 2017-11-19 07:39 | US_ITS ---
US abdomen limited: US abdomen limited HISTORY: ITS.REASON: RUQ PAIN,ABD PAIN ORDERING PHYSICIAN: Sergio La PATIENT AGE: 67 years Comparison: None FINDINGS: PANCREAS: Unremarkable. No obvious mass or abnormal fluid collection. No ductal dilatation LIVER: No focal liver lesions demonstrated. Homogeneous echogenicity. No intrahepatic biliary ductal dilatation evident RIGHT KIDNEY: Unremarkable. Normal size and echogenicity. No hydronephrosis GALLBLADDER: Gallbladder wall slightly thickened measuring up to 5 mm. No pericholecystic fluid. There are are areas of increased echogenicity within the fundus of the gallbladder. This could be related to sludge or nonshadowing stones.. Common bile duct is normal at 3 mm. IMPRESSION: 1. Inspissated sludge versus nonshadowing stones in the fundus of the gallbladder. 2. Mildly thickened gallbladder wall. 3. Hepatobiliary scan may provide further information if clinically warranted
== END ==
PROVIDERS: Family Provider Internal Medicine; PCP Internal Medicine; Visit Provider Internal Medicine
DX: R10.11 Right upper quadrant pain (principal)
CPT/HCPCS: 76705

== ENCOUNTER → 2017-12-15 14:53 | Outpatient (REF) | payer MEDICARE, SELFPAY ==
[2017-12-15 15:07] LABS: Basophils % 0.7 % (0.1-2.0); Eosinophils # 0.2 K/mm3 (0.0-0.4); Eosinophils % 3.3 % (0.1-12.0); Hematocrit 41.8 % (42.0-52.0); Hemoglobin 13.6 g/dL (14.1-18.0); Lymphocytes # 1.4 K/mm3 (0.7-4.5); Lymphocytes % 22.9 K/mm3 (10-50); Mean Corpuscular HGB Conc 32.5 g/dL (31.8-35.4); Mean Corpuscular Hemoglobin 29.5 pg (27.0-31.2); Mean Corpuscular Volume 90.8 fl (80-94); Mean Platelet Volume 7.1 fl (7.4-10.4); Monocytes # 0.3 K/mm3 (0.1-1.0); Neutrophils # 4.2 K/mm3 (1.8-7.8); Neutrophils % 68.1 % (37.0-80.0); Platelet Count 245 K/mm3 (142-424); White Blood Count 6.2 K/mm3 (4.8-10.8)
[2017-12-15 15:45] LABS: Alanine Aminotransferase 21 U/L (12-78); Albumin Level 3.6 gm/dL (3.4-5.0); Albumin/Globulin Ratio 1.1 (1.1-1.8); Alkaline Phosphatase 77 U/L (46-116); Aspartate Amino Transferase 14 U/L (15-37); Bilirubin,Total 0.5 mg/dL (0.2-1.0); Blood Urea Nitrogen 12 mg/dL (7-18); Calcium 9.1 mg/dL (8.5-10.1); Carbon Dioxide 26 mmol/L (21.0-32.0); Chloride 107 mmol/L (98-107); Creatinine,Serum 0.97 mg/dL (0.70-1.30); Estimated Glomerular Filt Rate 77 ml/min (>60); GFR (African American) 93 ML/MIN (>60); Globulin 3.2 gm/dl (1.3-3.2); Glucose 88 mg/dL (74-106); Sodium 144 mmol/L (136-145); Thyroid Stimulating Hormone 3.73 uIU/ml (0.358-3.740); Total Protein,Serum 6.8 gm/dL (6.4-8.2)
== END ==
LOC: LAB 14:53
PROVIDERS: Visit Provider Internal Medicine
DX: R53.83 Other fatigue (principal)
CPT/HCPCS: 80053; 84443; 85025

== ENCOUNTER 2017-12-16 10:07 | Outpatient (RCR) | payer MEDICARE, SELFPAY | END 2018-03-06 12:57 | disposition home or self-care (01) | LOC: PT 10:07 | PROVIDERS: Family Provider Internal Medicine; PCP Internal Medicine; Visit Provider Thoracic Surgery (Cardiothoracic Vascular Surgery) | DX: I25.10 Atherosclerotic heart disease of native coronary artery without angina pectoris (principal); Z95.1 Presence of aortocoronary bypass graft | CPT/HCPCS: 93798 ==

== ENCOUNTER → 2018-08-11 14:09 | Outpatient (CLI) | payer MEDICARE, SELFPAY ==
--- NOTE | 2018-08-11 | XR_ITS ---
XR chest 2V HISTORY: Cough and fever and shortness of air ORDERING PHYSICIAN: Sergio La PATIENT AGE: 68 years COMPARISON: 11/15/2017 FINDINGS: There has been a prior CABG. The cardiovascular structures are unremarkable. There is increased density in the right lung base consistent with atelectasis and/or infiltrate. There are low lung volumes which may accentuate this finding. No acute bony findings. IMPRESSION: Right basilar atelectasis and/or infiltrate
== END ==
PROVIDERS: PCP Internal Medicine; Visit Provider Internal Medicine
DX: R05 Cough (principal); R50.9 Fever, unspecified
CPT/HCPCS: 71046

== ENCOUNTER → 2018-10-14 09:21 | Outpatient (CLI) | payer MEDICARE, SELFPAY ==
--- NOTE | 2018-10-14 09:25 | XR_ITS ---
XR chest 2V HISTORY: Follow-up pneumonia ITS.REASON: S/P RLL PNEUMONIA FU ORDERING PHYSICIAN: Sergio La PATIENT AGE: 68 years COMPARISON: 08/11/2018 FINDINGS: Prior CABG. Right lower lobe pneumonia has shown improvement compared to the previous exam. There is some mild coarsening of the bronchovascular markings. No lobar consolidation or collapse. No acute bony findings. IMPRESSION: Improved right lower lobe pneumonia with chronic coarsening of the bronchovascular markings
== END ==
PROVIDERS: PCP Internal Medicine; Visit Provider Internal Medicine
DX: J18.1 Lobar pneumonia, unspecified organism (principal)
CPT/HCPCS: 71046

== ENCOUNTER → 2018-11-18 09:11 | Outpatient (CLI) | payer MEDICARE, SELFPAY | PROVIDERS: PCP Internal Medicine; Visit Provider Internal Medicine | DX: I25.10 Atherosclerotic heart disease of native coronary artery without angina pectoris (principal); I10 Essential (primary) hypertension; R53.83 Other fatigue | CPT/HCPCS: 93005 ==

== ENCOUNTER → 2019-05-04 15:15 | Outpatient (CLI) | payer MEDICARE, SELFPAY ==
--- NOTE | 2019-05-04 15:20 | CT_ITS ---
PROCEDURE: CT HEAD/BRAIN WO CON CLINICAL INDICATION: RT ARM NUMBNESS/TINGLING,WEAKNESS COMPARISON: No exams were available for comparison TECHNIQUE: Axial images obtained. All CT scans at the facility use one or more dose reduction, viz: automated exposure control, ma/kV adjustment per patient size (including targeted exams where dose is matched to indication, i.e. head), or iterative reconstruction technique. FINDINGS: No midline shift, mass effect, intracranial hemorrhage, hydrocephalus, or extra-axial fluid collection is evident. There is generalized atrophy with hypoattenuation of the periventricular white matter consistent with microangiopathic changes. The calvarium has an unremarkable appearance. No mastoid effusion. No sinus air-fluid level. IMPRESSION: No acute intracranial finding Dictated by: Noel Cespedes MD 05/04/2019 15:40 Electronically signed by Noel Cespedes MD in [place] 05/04/2019 15:40
== END ==
PROVIDERS: PCP Internal Medicine; Visit Provider Internal Medicine
DX: M79.601 Pain in right arm (principal); R53.1 Weakness; R20.0 Anesthesia of skin; R20.2 Paresthesia of skin
CPT/HCPCS: 70450

== ENCOUNTER → 2019-05-07 12:13 | Outpatient (CLI) | payer MEDICARE, SELFPAY ==
--- NOTE | 2019-05-07 | CA_ITS ---
APPROVED REPORT Electrical Laboratory Technician: SHAR Laterality: Bilateral Study Quality: Good Risk Factors Right arm tingling/numbness Doppler Spectral Velocity Analysis ECA (R) 99.50/16.90 cm/s ECA (L) 92.40/20.10 cm/s dICA (R) 71.30/26.80 cm/s dICA (L) 47.90/12.40 cm/s Nasir (R) 50.10/18.40 cm/s Nasir (L) 77.50/32.70 cm/s pICA (R) 69.20/18.40 cm/s pICA (L) 69.80/21.50 cm/s dCCA (R) 81.20/19.80 cm/s dCCA (L) 87.20/29.10 cm/s pCCA (R) 90.50/16.50 cm/s pCCA (L) 130.00/37.30 cm/s Vert (R) 40.20/9.90 cm/s Vert (L) 41.30/14.90 cm/s ICA/CCA 0.90 ICA/CCA 0.90 Findings Duplex evaluation demonstrates stenosis of the right proximal internal carotid artery <20% with PSV <140 cm/sec, EDV <100 cm/sec, and IC/CC Ratio <4.0.Duplex evaluation demonstrates stenosis of the left proximal internal carotid artery <20% with PSV <140 cm/sec, EDV <100 cm/sec, and IC/CC Ratio <4.0. Conclusion No increased velocities to suggest hemodynamically significant stenosis in either internal carotid artery. Electronically signed by : Noel Cespedes MD 05/07/2019 18:20:18
== END ==
PROVIDERS: PCP Internal Medicine; Visit Provider Internal Medicine
DX: R20.0 Anesthesia of skin (principal); R20.2 Paresthesia of skin; M79.601 Pain in right arm
CPT/HCPCS: 93880

== ENCOUNTER → 2021-08-01 12:51 | Outpatient (CLI) | payer MEDICARE, SELFPAY ==
[2021-08-01 13:28] LABS: Basophils # 0.1 K/mm3 (0-0.2); Basophils % 1.1 % (0.1-2.0); Eosinophils # 0.3 K/mm3 (0.0-0.4); Eosinophils % 4.7 % (0.1-12.0); Hematocrit 43.7 % (42.0-52.0); Hemoglobin 14.9 g/dL (14.1-18.0); Lymphocytes # 1.5 K/mm3 (0.7-4.5); Lymphocytes % 26.1 % (10-50); Mean Corpuscular HGB Conc 34.1 g/dL (31.8-35.4); Mean Corpuscular Hemoglobin 32.1 pg (27.0-31.2); Mean Corpuscular Volume 94.1 fl (80-94); Mean Platelet Volume 8.6 fl (7.4-10.4); Monocytes # 0.4 K/mm3 (0.1-1.0); Monocytes % 6.6 % (1.7-9.3); Neutrophils # 3.5 K/mm3 (1.8-7.8); Neutrophils % 61.5 % (37.0-80.0); Platelet Count 229 K/mm3 (142-424); Red Blood Count 4.64 M/mm3 (4.60-6.20); Red Cell Distribution Width 13.7 % (11.5-17.5); White Blood Count 5.7 K/mm3 (4.8-10.8)
[2021-08-01 14:27] LABS: Chloride 106 mmol/L (98-107); Potassium 4.2 mmoL/L (3.5-5.1); Sodium 140 mmol/L (136-145)
[2021-08-01 14:29] LABS: Alanine Aminotransferase 19 U/L (12-78); Aspartate Amino Transferase 28 U/L (17-59); Blood Urea Nitrogen 13 mg/dl (9-20); Estimated Glomerular Filt Rate 74 ml/min (>60); GFR (African American) 89 ML/MIN (>60)
[2021-08-01 14:30] LABS: Albumin Level 4.3 g/dl (3.5-5.0); Albumin/Globulin Ratio 1.7 (1.1-1.8); Alkaline Phosphatase 45 U/L (38-126); Anion Gap 11.2 mEq/L (5-15); Bilirubin,Total 0.9 mg/dl (0.2-1.3); Calcium 9.4 mg/dl (8.4-10.2); Carbon Dioxide 27 mmol/L (22.0-30.0); Chol/HDL Ratio 3.3 (1-3.5); Cholesterol 137 mg/dl (140-200); Globulin 2.5 g/dL (1.3-3.2); Glucose 79 mg/dl (74-100); HDL Cholesterol 42 mg/dl (40-60); Total Protein,Serum 6.8 g/dl (6.3-8.2); Triglycerides 122 mg/dl (30-150); VLDL Cholesterol 24 mg/dL (0-40)
[2021-08-01 14:41] LABS: Direct LDL Cholesterol 67.98 mg/dL (100-129)
== END ==
PROVIDERS: PCP Internal Medicine; Visit Provider Internal Medicine
DX: I10 Essential (primary) hypertension (principal); E78.5 Hyperlipidemia, unspecified; G60.9 Hereditary and idiopathic neuropathy, unspecified; Z86.73 Personal history of transient ischemic attack (TIA), and cerebral infarction without residual deficits
CPT/HCPCS: 80053; 80061; 85025

== ENCOUNTER → 2021-08-02 09:47 | Outpatient (CLI) | payer MEDICARE, SELFPAY ==
--- NOTE | 2021-08-02 09:54 | XR_ITS ---
FINAL REPORT TECHNIQUE: Chest PA & Lateral CLINICAL HISTORY: PERSISTENT COUGH, HTN, soa, hx of open heart sx 2 years ago COMPARISON: October 23, 2018 FINDINGS: 2 views of the chest were performed. There has been prior CABG. The heart size is normal. The mediastinum is within normal limits. The lungs are little underinflated. There is no acute cardiopulmonary process. There are no pleural effusions. There is no pneumothorax. The bony thorax appears intact. IMPRESSION: No acute cardiopulmonary process. Reviewed, Interpreted and Dictated by Kj Kaufman MD Transcribed by Nava Matute Authenticated by Kj Kaufman MD on 08/02/2021 11:54:41 AM [facility]
== END ==
PROVIDERS: PCP Internal Medicine; Visit Provider Internal Medicine
DX: R05.8 Other specified cough (principal); I10 Essential (primary) hypertension
CPT/HCPCS: 71046

== ENCOUNTER → 2022-01-30 12:17 | Outpatient (CLI) | payer MEDICARE, SELFPAY ==
[2022-01-30 13:41] LABS: Alanine Aminotransferase 20 U/L (12-78); Albumin Level 3.7 g/dl (3.5-5.0); Albumin/Globulin Ratio 1.4 (1.1-1.8); Alkaline Phosphatase 50 U/L (38-126); Anion Gap 10.8 mEq/L (5-15); Aspartate Amino Transferase 25 U/L (17-59); Bilirubin,Total 0.4 mg/dl (0.2-1.3); Blood Urea Nitrogen 21 mg/dl (9-20); Carbon Dioxide 26 mmol/L (22.0-30.0); Chloride 109 mmol/L (98-107); Chol/HDL Ratio 3.1 (1-3.5); Cholesterol 119 mg/dl (140-200); Estimated Glomerular Filt Rate 74 ml/min (>60); GFR (African American) 89 ML/MIN (>60); Globulin 2.6 g/dL (1.3-3.2); Glucose 85 mg/dl (74-100); HDL Cholesterol 38 mg/dl (40-60); Potassium 3.8 mmoL/L (3.5-5.1); Sodium 142 mmol/L (136-145); Total Protein,Serum 6.3 g/dl (6.3-8.2); Triglycerides 117 mg/dl (30-150); VLDL Cholesterol 23 mg/dL (0-40)
[2022-01-30 13:51] LABS: Direct LDL Cholesterol 56.49 mg/dL (100-129)
[2022-01-30 14:11] LABS: Thyroid Stimulating Hormone 4.35 uIU/mL (0.465-4.68)
== END ==
PROVIDERS: PCP Internal Medicine; Visit Provider Internal Medicine
DX: I10 Essential (primary) hypertension (principal); E78.5 Hyperlipidemia, unspecified; I25.10 Atherosclerotic heart disease of native coronary artery without angina pectoris; I25.2 Old myocardial infarction; E03.9 Hypothyroidism, unspecified; I95.1 Orthostatic hypotension; Z12.5 Encounter for screening for malignant neoplasm of prostate
CPT/HCPCS: 80053; 80061; 84443; G0103

== ENCOUNTER → 2022-08-02 14:10 | Outpatient (CLI) | payer MEDICARE, SELFPAY ==
[2022-08-02 16:04] LABS: Basophils % 0.6 % (0.1-2.0); Eosinophils # 0.3 K/mm3 (0.0-0.4); Eosinophils % 3.6 % (0.1-12.0); Hematocrit 45.7 % (42.0-52.0); Hemoglobin 15.1 g/dL (14.1-18.0); Lymphocytes # 1.5 K/mm3 (0.7-4.5); Lymphocytes % 21.6 % (10-50); Mean Corpuscular Hemoglobin 31.2 pg (27.0-31.2); Mean Corpuscular Volume 94.5 fl (80-94); Mean Platelet Volume 9.5 fl (7.4-10.4); Monocytes # 0.4 K/mm3 (0.1-1.0); Monocytes % 6.1 % (1.7-9.3); Neutrophils # 4.6 K/mm3 (1.8-7.8); Platelet Count 238 K/mm3 (142-424); Red Blood Count 4.83 M/mm3 (4.60-6.20); Red Cell Distribution Width 13.6 % (11.5-17.5); White Blood Count 6.8 K/mm3 (4.8-10.8)
[2022-08-02 16:22] LABS: Alanine Aminotransferase 22 U/L (12-78); Albumin Level 4.5 g/dl (3.5-5.0); Albumin/Globulin Ratio 1.7 (1.1-1.8); Alkaline Phosphatase 51 U/L (38-126); Anion Gap 10.9 mEq/L (5-15); Aspartate Amino Transferase 25 U/L (17-59); Bilirubin,Total 0.8 mg/dl (0.2-1.3); Blood Urea Nitrogen 16 mg/dl (9-20); Calcium 9.1 mg/dl (8.4-10.2); Carbon Dioxide 27 mmol/L (22.0-30.0); Chloride 108 mmol/L (98-107); Cholesterol 127 mg/dl (140-200); Estimated Glomerular Filt Rate 66 ml/min (>60); GFR (African American) 80 ML/MIN (>60); Globulin 2.6 g/dL (1.3-3.2); Glucose 79 mg/dl (74-100); HDL Cholesterol 43 mg/dl (40-60); Potassium 3.9 mmoL/L (3.5-5.1); Sodium 142 mmol/L (136-145); Total Protein,Serum 7.1 g/dl (6.3-8.2); Triglycerides 150 mg/dl (30-150); VLDL Cholesterol 30 mg/dL (0-40)
[2022-08-02 16:33] LABS: Direct LDL Cholesterol 58.28 mg/dL (100-129)
[2022-08-02 16:51] LABS: Prostate Specific Ag Screen 6.6 ng/ml (0.0-4.0)
== END ==
PROVIDERS: PCP Internal Medicine; Visit Provider Internal Medicine
DX: I25.118 Atherosclerotic heart disease of native coronary artery with other forms of angina pectoris (principal); I10 Essential (primary) hypertension; I25.2 Old myocardial infarction; E03.9 Hypothyroidism, unspecified; E78.5 Hyperlipidemia, unspecified; G60.9 Hereditary and idiopathic neuropathy, unspecified; Z12.5 Encounter for screening for malignant neoplasm of prostate
CPT/HCPCS: 80053; 80061; 85025; G0103

== ENCOUNTER → 2023-02-18 12:54 | Outpatient (CLI) | payer MEDICARE, SELFPAY ==
[2023-02-18 15:14] LABS: Alanine Aminotransferase 19 U/L (12-78); Albumin Level 3.8 g/dl (3.5-5.0); Albumin/Globulin Ratio 1.4 (1.1-1.8); Alkaline Phosphatase 50 U/L (38-126); Aspartate Amino Transferase 21 U/L (17-59); Bilirubin,Total 0.3 mg/dl (0.2-1.3); Blood Urea Nitrogen 18 mg/dl (9-20); Carbon Dioxide 25 mmol/L (22.0-30.0); Chloride 110 mmol/L (98-107); Chol/HDL Ratio 3.1 (1-3.5); Cholesterol 121 mg/dl (140-200); Estimated Glomerular Filt Rate 83 ml/min (>60); GFR (African American) 100 ML/MIN (>60); Globulin 2.7 g/dL (1.3-3.2); Glucose 85 mg/dl (74-100); HDL Cholesterol 39 mg/dl (40-60); Sodium 143 mmol/L (136-145); Total Protein,Serum 6.5 g/dl (6.3-8.2); Triglycerides 87 mg/dl (30-150); VLDL Cholesterol 17 mg/dL (0-40)
[2023-02-18 15:45] LABS: Thyroid Stimulating Hormone 0.57 uIU/mL (0.465-4.68)
== END ==
PROVIDERS: PCP Internal Medicine; Visit Provider Internal Medicine
DX: I10 Essential (primary) hypertension (principal); I25.10 Atherosclerotic heart disease of native coronary artery without angina pectoris; E03.9 Hypothyroidism, unspecified; E78.5 Hyperlipidemia, unspecified; Z86.73 Personal history of transient ischemic attack (TIA), and cerebral infarction without residual deficits; Z95.1 Presence of aortocoronary bypass graft
CPT/HCPCS: 80053; 80061; 84443

== ENCOUNTER 2023-08-22 11:37 | Outpatient (CLI) | payer MEDICARE, SELFPAY ==
[2023-08-22 12:14] LABS: Basophils % 0.4 % (0.1-2.0); Eosinophils # 0.3 K/mm3 (0.0-0.4); Eosinophils % 3.6 % (0.1-12.0); Hematocrit 44.3 % (42.0-52.0); Hemoglobin 15.2 g/dL (14.1-18.0); Lymphocytes # 1.6 K/mm3 (0.7-4.5); Lymphocytes % 22.9 % (10-50); Mean Corpuscular HGB Conc 34.4 g/dL (31.8-35.4); Mean Corpuscular Hemoglobin 32.1 pg (27.0-31.2); Mean Corpuscular Volume 93.4 fl (80-94); Mean Platelet Volume 8.3 fl (7.4-10.4); Monocytes # 0.4 K/mm3 (0.1-1.0); Neutrophils # 4.7 K/mm3 (1.8-7.8); Neutrophils % 67.1 % (37.0-80.0); Platelet Count 202 K/mm3 (142-424); Red Blood Count 4.74 M/mm3 (4.60-6.20); Red Cell Distribution Width 13.7 % (11.5-17.5)
[2023-08-22 12:49] LABS: Alanine Aminotransferase 30 U/L (12-78); Albumin Level 4.2 g/dl (3.5-5.0); Albumin/Globulin Ratio 1.7 (1.1-1.8); Alkaline Phosphatase 54 U/L (38-126); Anion Gap 12.3 mEq/L (5-15); Aspartate Amino Transferase 30 U/L (17-59); Blood Urea Nitrogen 17 mg/dl (9-20); Calcium 9.3 mg/dl (8.4-10.2); Carbon Dioxide 27 mmol/L (22.0-30.0); Chloride 108 mmol/L (98-107); Chol/HDL Ratio 3.3 (1-3.5); Cholesterol 142 mg/dl (140-200); Estimated Glomerular Filt Rate 73 ml/min (>60); GFR (African American) 89 ML/MIN (>60); Globulin 2.5 g/dL (1.3-3.2); Glucose 84 mg/dl (74-100); HDL Cholesterol 43 mg/dl (40-60); Potassium 4.3 mmoL/L (3.5-5.1); Sodium 143 mmol/L (136-145); Total Protein,Serum 6.7 g/dl (6.3-8.2); Triglycerides 129 mg/dl (30-150); VLDL Cholesterol 26 mg/dL (0-40)
[2023-08-22 13:01] LABS: Direct LDL Cholesterol 68.51 mg/dL (100-129)
== END 2023-08-22 23:59 ==
PROVIDERS: PCP Internal Medicine; Visit Provider Internal Medicine
DX: I10 Essential (primary) hypertension (principal); I25.10 Atherosclerotic heart disease of native coronary artery without angina pectoris; I25.2 Old myocardial infarction; E03.9 Hypothyroidism, unspecified; E78.5 Hyperlipidemia, unspecified; G60.9 Hereditary and idiopathic neuropathy, unspecified
CPT/HCPCS: 80053; 80061; 85025

== ENCOUNTER 2024-02-05 13:57 | Outpatient (CLI) | payer MEDICARE, SELFPAY ==
--- NOTE | 2024-02-05 14:01 | XR_ITS ---
FINAL REPORT CLINICAL HISTORY: Lumbago with right sciatica FINDINGS: LUMBAR SPINE Three views demonstrate no acute fracture. There is moderate disc space narrowing. There is marked disc space narrowing at L5-S1. There is facet sclerosis in the lower lumbar spine There is no malalignment. IMPRESSION: Advanced degenerative disc disease. Reviewed, Interpreted and Dictated by Kj Kaufman MD Transcribed by Bren Perez Authenticated and [facility]
--- NOTE | 2024-02-05 14:01 | XR_ITS ---
FINAL REPORT CLINICAL HISTORY: Right hip pain FINDINGS: Right hip Three views were obtained. There is no acute fracture or dislocation. There is moderate joint space narrowing. There is mild subchondral sclerosis. There is a 5 mm os acetabuli. No soft tissue abnormality is identified. IMPRESSION: Mild to moderate changes of osteoarthritis. Reviewed, Interpreted and Dictated by Kj Kaufman MD Transcribed by Bren Perez Authenticated and [facility]
--- NOTE | 2024-02-05 14:01 | XR_ITS ---
FINAL REPORT CLINICAL HISTORY: Right knee pain FINDINGS: Right knee Three views were obtained. There is no acute fracture or dislocation. The joint spaces appear normal. There is mild soft tissue swelling anterior to the patella. IMPRESSION: No acute process. Reviewed, Interpreted and Dictated by Kj Kaufman MD Transcribed by Bren Perez Authenticated and [facility]
== END 2024-02-05 23:59 | disposition home or self-care (01) ==
LOC: RAD 13:58
PROVIDERS: PCP Internal Medicine; Visit Provider Internal Medicine
DX: M25.561 Pain in right knee (principal); M25.551 Pain in right hip; M54.41 Lumbago with sciatica, right side
CPT/HCPCS: 72100; 73502; 73562

== ENCOUNTER 2024-02-19 08:50 | Outpatient (CLI) | payer MEDICARE, SELFPAY ==
[2024-02-19 18:06] LABS: Alanine Aminotransferase 35 U/L (12-78); Albumin Level 3.6 g/dl (3.5-5.0); Albumin/Globulin Ratio 1.4 (1.1-1.8); Alkaline Phosphatase 56 U/L (38-126); Aspartate Amino Transferase 24 U/L (17-59); Bilirubin,Total 1.2 mg/dl (0.2-1.3); Blood Urea Nitrogen 27 mg/dl (9-20); Carbon Dioxide 26 mmol/L (22.0-30.0); Chloride 107 mmol/L (98-107); Chol/HDL Ratio 2.9 (1-3.5); Cholesterol 158 mg/dl (140-200); Estimated Glomerular Filt Rate 73 ml/min (>60); GFR (African American) 89 ML/MIN (>60); Globulin 2.6 g/dL (1.3-3.2); Glucose 62 mg/dl (74-100); HDL Cholesterol 55 mg/dl (40-60); Potassium 3.4 mmoL/L (3.5-5.1); Total Protein,Serum 6.2 g/dl (6.3-8.2); Triglycerides 192 mg/dl (30-150); VLDL Cholesterol 38 mg/dL (0-40)
[2024-02-19 18:36] LABS: Prostate Specific Ag Screen 5.8 ng/ml (0.0-4.0); Thyroid Stimulating Hormone 1.81 uIU/mL (0.465-4.68)
[2024-02-19 19:22] LABS: Anion Gap 10.4 mEq/L (5-15); Sodium 140 mmol/L (136-145)
== END 2024-02-19 23:59 | disposition home or self-care (01) ==
LOC: LAB.DROPOF 02-21 17:22
PROVIDERS: PCP Internal Medicine; Visit Provider Internal Medicine
DX: E78.5 Hyperlipidemia, unspecified (principal); E03.9 Hypothyroidism, unspecified; Z12.5 Encounter for screening for malignant neoplasm of prostate; I25.10 Atherosclerotic heart disease of native coronary artery without angina pectoris; I10 Essential (primary) hypertension
CPT/HCPCS: 80053; 80061; 84443; G0103

== ENCOUNTER 2024-05-04 09:34 | Outpatient (CLI) | payer MEDICARE, SELFPAY ==
--- NOTE | 2024-05-04 09:35 | MR_ITS ---
PROCEDURE INFORMATION: Exam: MR Lumbar Spine Without Contrast Exam date and time: 05/04/2024 9:53 AM Age: 73 years old Clinical indication: Low back pain; Additional info: Lumbago with right sciatica. Right leg and groin pain. TECHNIQUE: Imaging protocol: Magnetic resonance imaging of the lumbar spine without contrast. COMPARISON: CR XR LUMBAR SPINE 2-3V 02/05/2024 2:02 PM FINDINGS: Bones/joints: Vertebral body heights are preserved. There is a biconvex curvature of the lumbar spine, the upper convexity projecting to the right with a Solo angle measuring 17 degrees centered at L3, lower convexity projecting to the left centered at L5 with a Solo angle measuring 11 degrees. Spondylosis is noted with disc bulging and facet arthropathy as well as ligamentous thickening. Spinal cord: Visualized cord, conus medullaris and cauda equina are unremarkable without compression. L1-L2: No significant disc bulge or herniation. No severe spinal canal stenosis. No significant neural foraminal narrowing. L2-L3: No significant disc bulge or herniation. No severe spinal canal stenosis. No significant neural foraminal narrowing. L3-L4: At L3-L4 there is broad-based disc bulge with facet arthropathy and ligamentous thickening causing moderate to severe canal narrowing with crowding of nerve roots. There is moderate to severe left neural foraminal stenosis. L4-L5: At L4-L5 there is broad-based disc bulge with facet arthropathy and ligamentous thickening, worse on the right. There is [id number] canal narrowing and severe right neural foraminal stenosis. L5-S1: At L5-S1 there is no significant canal narrowing despite a broad-based disc bulge with facet arthropathy and ligamentous thickening. There is moderate to severe neural foraminal narrowing. Soft tissues: Unremarkable. IMPRESSION: Lumbar spondylosis as described.
== END 2024-05-04 23:59 | disposition home or self-care (01) ==
LOC: RAD 09:35
PROVIDERS: PCP Internal Medicine; Visit Provider Internal Medicine
DX: M54.41 Lumbago with sciatica, right side (principal)
CPT/HCPCS: 72148

== ENCOUNTER 2024-08-05 16:30 | Outpatient (CLI) | payer MEDICARE, SELFPAY | END 2024-08-05 23:59 | disposition home or self-care (01) | LOC: LAB.DROPOF 08-06 10:50 | PROVIDERS: PCP Internal Medicine; Visit Provider Internal Medicine | DX: B34.9 Viral infection, unspecified (principal); Z20.822 Contact with and (suspected) exposure to COVID-19 | CPT/HCPCS: 87635 ==

== ENCOUNTER 2025-03-03 08:00 | Outpatient (RCR) | payer MEDICARE, SELFPAY | END 2025-03-03 23:59 | disposition home or self-care (01) | LOC: PT 08:00 | PROVIDERS: PCP Internal Medicine; Visit Provider Physician Assistant | DX: Z47.89 Encounter for other orthopedic aftercare (principal); Z96.649 Presence of unspecified artificial hip joint | CPT/HCPCS: 97110; 97162; 97530 ==

== ENCOUNTER 2025-03-17 11:00 | Outpatient (RCR) | payer MEDICARE, SELFPAY | END 2025-03-17 23:59 | disposition home or self-care (01) | LOC: PT 11:00 | PROVIDERS: PCP Internal Medicine; Visit Provider Physician Assistant | DX: Z47.89 Encounter for other orthopedic aftercare (principal); Z96.649 Presence of unspecified artificial hip joint | CPT/HCPCS: 97110; 97530 ==